=== PATIENT | male | born 1945 | race Hispanic/Latino ===

== ENCOUNTER 2016-10-08 11:00 | Observation (INO) | payer MEDICARE ==
[2016-10-08] MEDS ORDERED: ANCEF IR ONE (11:28)
[2016-10-08] MEDS ORDERED: NACL 0.9% 1 ML, VANCOMYCIN VIAL 1,000 MG IR ONE (11:28)
[2016-10-08] MEDS ORDERED: NACL 0.9% IR ONE (11:28)
[2016-10-08 11:54] LABS: Eosinophils % (Auto) 0.8 % (0.0-4.3); Hematocrit 39.3 % (35.5-45.6); Hemoglobin 13.4 gm/dl (11.8-15.2); Mean Corpuscular HGB Conc 34 % (32-34); Mean Corpuscular Hemoglobin 32 pg (28-32); Mean Corpuscular Volume 93 fl (84-94); Platelet Count 303 K/mm3 (140-440); Red Blood Count 4.22 M/mm3 (3.65-5.03); Red Cell Distribution Width 13.5 % (13.2-15.2); White Blood Count 11.2 K/mm3 (4.5-11.0)
[2016-10-08] MEDS ORDERED: NACL 0.45% 1000 ML 1,000 ML IV SCH (12:00)
[2016-10-08 12:06] LABS: INR 0.99 (0.87-1.13); Partial Thromboplastin Time 27.1 Sec. (24.2-36.6)
[2016-10-08] MEDS ORDERED: VANCOMYCIN IV ONE (12:15)
[2016-10-08] MEDS ORDERED: NACL 0.9% IV ONE (12:15)
[2016-10-08] MEDS ORDERED: NACL 0.9% 500 ML IR ONE (12:24)
[2016-10-08] MEDS ORDERED: XYLOCAINE 2% INFILTRATI ONE (12:25)
[2016-10-08] MEDS ORDERED: ANCEF/STERILE WATER 2 GM/20 ML 2 GM/20 ML SYRINGE IV ONE (12:25)
[2016-10-08] MEDS ORDERED: MILK OF MAGNESIA PO PRN (12:25)
[2016-10-08] MEDS ORDERED: ZOFRAN IV PRN (12:25)
[2016-10-08] MEDS ORDERED: MARCAINE 0.25% INFILTRATI ONE (12:25)
[2016-10-08] MEDS ORDERED: DULCOLAX PR PRN (12:25)
[2016-10-08] MEDS ORDERED: NACL 0.9% 500 ML 500 ML ONE ×2 (12:33→13:28)
[2016-10-08 12:55] LABS: BUN/Creatinine Ratio 23.33; Calcium 9.4 mg/dL (8.4-10.2); Chloride 97.8 mmol/L (98-107); Potassium 3.8 mmol/L (3.6-5.0)
[2016-10-08] MEDS: SUBLIMAZE ONE ×3 (13:05→13:35)
[2016-10-08] MEDS: VERSED ONE ×2 (13:05→13:23)
[2016-10-08] MEDS ORDERED: VANCOMYCIN VIAL 1,000 MG in NACL 0.9% 1,000 ML IRRIGATION ONE (13:25)
[2016-10-08] MEDS ORDERED: TYLENOL PO PRN (15:10)
[2016-10-08] MEDS ORDERED: ANCEF/NS 1 GM/50 ML 1 GM/50 ML BAG IV SCH (16:00)
[2016-10-08 16:13] LABS: Basophils % (Auto) 0.6 % (0.0-1.8); Eosinophils % (Auto) 0.6 % (0.0-4.3); Hematocrit 37.4 % (35.5-45.6); Hemoglobin 12.3 gm/dl (11.8-15.2); Mean Corpuscular HGB Conc 33 % (32-34); Mean Corpuscular Hemoglobin 31 pg (28-32); Mean Corpuscular Volume 95 fl (84-94); Platelet Count 286 K/mm3 (140-440); Red Blood Count 3.95 M/mm3 (3.65-5.03); Red Cell Distribution Width 13.4 % (13.2-15.2); White Blood Count 11.1 K/mm3 (4.5-11.0)
[2016-10-08 16:24] LABS: INR 1.05 (0.87-1.13)
[2016-10-08 16:37] LABS: BUN/Creatinine Ratio 20.83; Calcium 8.9 mg/dL (8.4-10.2); Chloride 99.5 mmol/L (98-107); Potassium 3.8 mmol/L (3.6-5.0)
--- NOTE | 2016-10-08 16:49 | XRay Report ---
PORTABLE CHEST INDICATION: Post pacemaker. COMPARISON: None similar. FINDINGS: Portable, frontal chest radiograph demonstrates normal cardiomediastinal silhouette. Left sided pacemaker with dual chamber leads. Right hemidiaphragm mildly elevated. Clear lungs. EKG leads. Unremarkable bones. CONCLUSION: Uncomplicated left pacemaker placement, as described. Thank you for the opportunity to participate in this patient's care.
[2016-10-08] MEDS: TYLENOL PO PRN (19:30)
[2016-10-08] MEDS: ANCEF/NS 1 GM/50 ML 1 GM/50 ML BAG IV SCH (21:26)
[2016-10-09] MEDS: TYLENOL PO PRN (03:42)
[2016-10-09] MEDS: ANCEF/NS 1 GM/50 ML 1 GM/50 ML BAG IV SCH (03:43)
--- NOTE | 2016-10-09 08:25 | Admit Criteria Form ---
Admission Criteria Documentation: TELEMETRY CARE Telemetry Admission Guidelines (Place 'X' for any and all applicable criteria): Admission to telemetry [A] may be indicated for ANY ONE of the following(1)(2)(3 )(4)(5): [X ]I. Cardiac disease, including ANY ONE of the following (9)(10)(11)(12)( 13): [ ]a) Postacute NC [ ]b) Low-risk patients with ST-segment elevation NC who have undergone successful percutaneous coronary intervention [ ]c) Unstable angina [ ]d) Suspected NC (until it is ruled out) [ ]e) Post cardiac surgery (first 48 to 72 hours unless complications occur) [ X]f) Acute arrhythmias (including significant tachycardia or bradycardia) [B] [ ]g) Firing of an implantable cardioverter defibrillator [C] [ ]h) Suspected pacemaker or implantable cardioverter defibrillator malfunction (10) [ ]i) New administration or adjustment of an antiarrhythmic drug [D ] [ ]j) Child admitted for acute congestive heart failure [ ]j) Long QT syndrome [ ]k) Advanced heart block (eg, second-degree Mobitz type II, third- degree heart block) [ ]l) Acute myocarditis or pericarditis [ ]m) Short-term (ambulatory or inpatient) monitoring after a cardiac procedure as indicated by ANY ONE of the following [E]: [ ]i) Electrophysiologic studies [ ]ii) Percutaneous coronary intervention with stent placement [ ]iii) Pacemaker placement with cardiac conduction defect [ ]iv) Implantable cardiac defibrillator placement [ ]II. Drug overdose or poisoning with substance that causes arrhythmias or QT prolongation (eg, phenothiazines, sympathomimetic agents, cyclic antidepressants, digitalis, antiarrhythmic drugs)(15) [ ]III. Short-term (ambulatory or inpatient) monitoring after therapeutic or diagnostic procedure requiring conscious sedation or anesthesia (eg, endoscopy, elective cardioversion) [ ]IV. Acute cerebrovascular even[F](18) [ ]V. Massive blood transfusion (eg, at least 10 units of packed red blood cells in 24 hours) [ ]. Variceal bleeding after endoscopy, sclerotherapy, or IV vasopressin [ ]VII. Uncorrected electrolyte abnormalities associated with an increased risk of dangerous arrhythmia [G]; examples include [ ]a) Hyperkalemia with attributable ECG changes [ ]b) Potassium greater than 6.5 mmol/L (mEq/L) in a patient without history of chronic renal disease [ ]c) Prolonged QT attributed to hypokalemia, hypomagnesemia, or hypocalcemia [ ]VIII.Unexplained syncope or other neurologic event suspected of being due to arrhythmia due to a finding that increases risk; examples include(19)(20)(21): [ ]a) High-risk ECG findings (eg, bifascicular block, bradycardia, abnormal QT interval, ventricular pre- excitation) [ ]b) History of previous syncope due to arrhythmia [ ]c) Abnormal ventricular function (eg, reduced ejection fraction ) [ ]d) Exertional or supine syncope [ ]e) Concerning syncope characteristics (eg, sudden loss of consciousness without prodrome) [ ]f) Family history of sudden [ ]g) Use of arrhythmogenic medication [ ]h) Suspected cardiac ischemia [ ]i) Known channelopathy (eg, long QT syndrome, Brugada syndrome, or catecholaminergic paroxysmal ventricular tachycardia) [ ]j) Known structural heart disease (eg, hypertrophic cardiomyopathy , severe valvular disease) [ ]k) Palpitations preceding syncope The original [employer] content created by [employer] has been revised. The portions of the content which have been revised are identified through the use of italic text or in bold, and [employer] has neither reviewed nor approved the modified material. All other unmodified content is copyright [employer]. Please see references footnoted in the original [employer] edition 2016
--- NOTE | 2016-10-09 09:13 | Short Stay Summary ---
Short Stay Documentation Date of service: 10/09/16 - History H&P: obtained from office - Allergies and Medications Current Medications: Allergies No Known Allergies Allergy (Unverified 09/25/16 11:13) Home Medications Medication Instructions Recorded Confirmed Last Taken Type AtorvaSTATin 40 mg PO QHS 09/25/16 10/08/16 10/07/16 History amLODIPine 10 mg PO QDAY 09/25/16 10/08/16 10/07/16 History Lisinopril 20 mg PO DAILY #30 09/26/16 10/08/16 10/07/16 Rx Pantoprazole [Protonix TAB] 40 mg PO QDAY #30 tablet 09/26/16 10/08/16 10/07/16 Rx Active Medications Acetaminophen (Tylenol) 650 mg PO Q4H PRN PRN Reason: Pain MILD(1-3)/Fever >100.5/SALMON Last Admin: 10/09/16 03:42 Dose: 650 mg Acetaminophen (Tylenol) 650 mg PO Q4H PRN PRN Reason: Mild pain (1-3) Amlodipine Besylate (Norvasc) 10 mg PO QDAY [facility] Atorvastatin Calcium (Lipitor) 40 mg PO QHS [facility] Last Admin: 10/08/16 21:27 Dose: 40 mg Bisacodyl (Dulcolax) 10 mg [place] QDAY PRN PRN Reason: Constipation unrelieved by MOM Sodium Chloride (Nacl 0.45% 1000 Ml) 1,000 mls @ 50 mls/hr IV DIRECT ANABELLE Lisinopril (Zestril) 20 mg PO QDAY [facility] Magnesium Hydroxide (Milk Of Magnesia) 30 ml PO Q4H PRN PRN Reason: Constipation Ondansetron HCl (Zofran) 4 mg IV Q8H PRN PRN Reason: N/V unrelieved by Reglan Pantoprazole Sodium (Protonix) 40 mg PO QDAY [facility] - Brief post op/procedure progress note Date of procedure: 10/08/16 Pre-op diagnosis: symptomatic bradycardia Post-op diagnosis: same Procedure: PPM implantation - please see dictated implantation report. Anesthesia: local Estimated blood loss: none Pathology: none Condition: stable - Hospital course Hospital course: Pt is a 71 YO male with a past medical history significant for HTN, HLP, symptomatic bradycardia. He presented on 10/08/2016 for scheduled elective PPM implantation and subsequently undewent PPM implantation per Dr. Vuong. He remained clinically and hemodynamically stable throughout the procedure and recovery and is cleared for discharge home today. 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 Vuong on 10/19/2016 @ 1:00PM. ) MAITE STOVER MD [Staff Physician] - 7 Days (Follow up in our [place] office with Dr. Stover on 10/27/2016 @ 3:45PM. )
[2016-10-09] MEDS ORDERED: ZESTRIL PO SCH (10:00)
[2016-10-09] MEDS ORDERED: PROTONIX PO SCH (10:00)
[2016-10-09] MEDS ORDERED: NORVASC PO SCH (10:00)
[2016-10-09 10:33] VITALS: BP 139/76
== END 2016-10-09 10:00 | disposition home or self-care (01) ==
LOC: OPU 11:00 → 4A 12:25
PROVIDERS: ADMIT Internal Medicine Cardiovascular Disease; ATTEND Internal Medicine Cardiovascular Disease
DX: I49.5 Sick sinus syndrome (principal); I44.1 Atrioventricular block, second degree; R00.1 Bradycardia, unspecified; R53.1 Weakness; R11.0 Nausea; I10 Essential (primary) hypertension; E78.5 Hyperlipidemia, unspecified; Z95.0 Presence of cardiac pacemaker
CPT/HCPCS: 33208; 36415; 71010; 80048; 85025; 85610; 85730; 93005; 93010; 96365; 96375; A9270; C1779; C1785; C1892; G0378; J0690; J2250; J3010; J3370; J7040

== ENCOUNTER 2016-10-09 17:29 | Emergency (ER) | payer MEDICARE ==
[2016-10-09 18:04] LABS: Basophils % (Auto) 0.9 % (0.0-1.8); Eosinophils % (Auto) 0.6 % (0.0-4.3); Hematocrit 35.5 % (35.5-45.6); Hemoglobin 12.1 gm/dl (11.8-15.2); Mean Corpuscular HGB Conc 34 % (32-34); Mean Corpuscular Hemoglobin 32 pg (28-32); Mean Corpuscular Volume 93 fl (84-94); Platelet Count 255 K/mm3 (140-440); Red Blood Count 3.83 M/mm3 (3.65-5.03); Red Cell Distribution Width 13.5 % (13.2-15.2); White Blood Count 13.9 K/mm3 (4.5-11.0)
[2016-10-09 18:25] LABS: Anion Gap 21 mmol/L; Blood Urea Nitrogen 26 mg/dL (9-20); Calcium 8.8 mg/dL (8.4-10.2); Carbon Dioxide 21 mmol/L (22-30); Chloride 97.2 mmol/L (98-107); Glucose 114 mg/dL (75-100); Potassium 3.3 mmol/L (3.6-5.0); Sodium 136 mmol/L (137-145)
--- NOTE | 2016-10-09 18:55 | Emergency Department Report ---
ED Palpitations HPI - General Chief Complaint: Arrhythmia/Palpitations Stated Complaint: WEAKNESS Time Seen by Provider: 10/09/16 17:45 Source: patient, family, RN notes reviewed Mode of arrival: Wheelchair Limitations: No Limitations - History of Present Illness Initial Comments: 71-year-old male presents to the emergency department complaining of palpitations. Patient had an implanted permanent pacemaker placed yesterday. He was discharged from the hospital this morning. Pacemaker was placed for symptomatic bradycardia. Patient was doing well until he woke up from a nap this afternoon, approximately 30 minutes prior to arrival. Patient states he was having difficulty breathing and felt dizzy. He reports he felt his pulse beating very fast. He denies chest pain. His symptoms have been intermittent since onset. There are no other complaints. MD Complaint: palpitations -: Sudden, This afternoon Context: occured during rest Arrythmia History: pacemaker Associated Symptoms: shortness of breath, near-syncope, nausea/vomiting (nausea only) - Related Data Previous Rx's Medication Instructions Recorded Last Taken Type AtorvaSTATin [Lipitor] 40 mg PO QHS tablet 10/09/16 Unknown Rx Lisinopril [Zestril TAB] 20 mg PO QDAY tablet 10/09/16 Unknown Rx Metoprolol Xl [Metoprolol 25 mg PO QDAY #30 tablet 10/09/16 Unknown Rx SUCCINATE ER TAB] amLODIPine [Norvasc] 10 mg PO QDAY tablet 10/09/16 Unknown Rx Allergies Allergy/AdvReac Type Severity Reaction Status Date / Time No Known Allergies Allergy Unverified 10/09/16 17:51 ED Review of Systems ROS: Stated complaint: WEAKNESS Other details as noted in HPI Comment: All other systems reviewed and negative Respiratory: shortness of breath Cardiovascular: palpitations, syncope (lightheadedness, no loss of consciousness ) Gastrointestinal: nausea ED Past Medical Hx - Past Medical History Previous Medical History?: Yes Hx Hypertension: Yes Hx Heart Attack/AMI: No Hx Congestive Heart Failure: No Hx Kidney Stones: Yes Hx HIV: No - Surgical History Past Surgical History?: Yes Hx Pacemaker: Yes - Family History Family history: no significant - Social History Smoking Status: Former Smoker Substance Use Type: None - Medications Home Medications: Home Medications Medication Instructions Recorded Confirmed Last Taken Type AtorvaSTATin [Lipitor] 40 mg PO QHS tablet 10/09/16 10/09/16 Unknown Rx Lisinopril [Zestril TAB] 20 mg PO QDAY tablet 10/09/16 10/09/16 Unknown Rx Metoprolol Xl [Metoprolol 25 mg PO QDAY #30 tablet 10/09/16 Unknown Rx SUCCINATE ER TAB] amLODIPine [Norvasc] 10 mg PO QDAY tablet 10/09/16 10/09/16 Unknown Rx ED Physical Exam - General Limitations: No Limitations General appearance: alert, in no apparent distress - Head Head exam: Present: atraumatic, normocephalic - Eye Eye exam: Present: normal appearance, PERRL, EOMI - ENT ENT exam: Present: normal exam, normal orophraynx, mucous membranes moist - Neck Neck exam: Present: normal inspection, full ROM. Absent: tenderness - Respiratory Respiratory exam: Present: normal lung sounds bilaterally, chest wall tenderness (mild tenderness to palpation left upper anterior chest wall at the pacemaker site. Dressing is intact without evidence of bleeding.). Absent: respiratory distress - Cardiovascular Cardiovascular Exam: Present: regular rate, normal rhythm, normal heart sounds - GI/Abdominal GI/Abdominal exam: Present: soft, normal bowel sounds. Absent: distended, tenderness - Extremities Exam Extremities exam: Present: normal inspection, full ROM. Absent: tenderness - Back Exam Back exam: Present: normal inspection, full ROM. Absent: tenderness - Neurological Exam Neurological exam: Present: alert, oriented X3. Absent: motor sensory deficit - Skin Skin exam: Present: warm, dry, intact ED Course Vital Signs 10/09/16 10/09/16 10/09/16 17:31 17:45 17:46 Temperature 98.4 F Pulse Rate 94 H 94 H 93 H Respiratory 17 22 18 Rate Blood Pressure 126/73 126/73 O2 Sat by Pulse 99 99 Oximetry 10/09/16 10/09/16 10/09/16 18:00 18:15 18:30 Temperature Pulse Rate 102 H 88 89 Respiratory 22 14 16 Rate Blood Pressure 122/74 122/74 117/76 O2 Sat by Pulse 98 97 97 Oximetry 10/09/16 10/09/16 18:45 19:00 Temperature Pulse Rate 117 H 98 H Respiratory 13 21 Rate Blood Pressure 117/76 123/75 O2 Sat by Pulse 98 96 Oximetry ED Medical Decision Making - Lab Data Result diagrams: 10/09/16 17:50 10/09/16 17:50 - EKG Data -: EKG Interpreted by Me EKG shows normal: ST-T waves Rate: tachycardia - EKG Data When compared to previous EKG there are: previous EKG unavailable Interpretation: other (a regularly paced rhythm. Dual-chamber pacemaker with left bundle branch block morphology. No ischemic changes noted.) - Radiology Data Radiology results: image reviewed interpreted by me: Chest x-ray shows no acute abnormality. - Medical Decision Making Observing the patient on the alarm security or surveillance monitor reveals the patient's heart rate varying from the low 90s up to the high 120s. When his heart rate is in the 90s , he is asymptomatic. He becomes symptomatic with dizziness and nausea with his heart rate gets above 115. Lab and imaging results reviewed. The [employer] has been contacted and is en route to the emergency department to interrogate the newly placed pacemaker. I have also spoken with Dr. Yanes , cardiology. Disposition is pending results of pacemaker interrogation. 1956--pacemaker has been interrogated by the [employer] rep. Apparently, both the atrial and ventricular leads were undersensing causing some over pacing. His underlying rhythm is 2-1 block. He has been having some episodes of atrial tachycardia. These findings were discussed with Dr. Yanes. The plan is to give 5 mg of metoprolol IV and 25 mg of oral metoprolol. Patient will be discharged home on 25 mg of Toprol-XL to follow up with cardiology at his regularly scheduled appointment. This plan was discussed with the patient and family who agree. - Differential Diagnosis pacemaker malfunction, ACS Critical care attestation.: If time is entered above; I have spent that time in minutes in the direct care of this critically ill patient, excluding procedure time. ED Disposition Clinical Impression: Palpitations Pacemaker complications Qualifiers: Encounter type: initial encounter Qualified Code(s): T82.9XXA - Unspecified complication of cardiac and vascular prosthetic device, implant and graft, initial encounter Disposition: DISCHARGED TO HOME OR SELFCARE Is pt being admited?: No Condition: Stable Instructions: Palpitations (ED) Prescriptions: Metoprolol Xl [Metoprolol SUCCINATE ER TAB] 25 mg PO QDAY #30 tablet Referrals: MAITE STOVER MD [Staff Physician] - 7-10 days Time of Disposition: 20:03
[2016-10-09 19:19] VITALS: BP 123/75
[2016-10-09] MEDS ORDERED: LOPRESSOR IV ONE (19:56)
[2016-10-09] MEDS ORDERED: TOPROL XL PO ONE (21:00)
--- NOTE | 2016-10-10 09:27 | XRay Report ---
AP CHEST: HISTORY: This arrhythmia, palpitations AP view of the chest demonstrates a normal mediastinal and cardiac contour with clear lungs and normal bony and soft tissue structures. 2-lead pacemaker is again noted. No change since yesterday's exam. IMPRESSION: Unremarkable AP chest.
== END 2016-10-09 21:50 | disposition home or self-care (01) ==
LOC: ED 17:29
DX: T82.9XXA Unspecified complication of cardiac and vascular prosthetic device, implant and graft, initial encounter (principal); R00.2 Palpitations; I10 Essential (primary) hypertension; Z87.891 Personal history of nicotine dependence; Z95.0 Presence of cardiac pacemaker
CPT/HCPCS: 36415; 71010; 80048; 83735; 84484; 85025; 93005; 93010; 96374

== ENCOUNTER 2017-05-09 23:03 | Emergency (ER) | payer MEDICARE ==
[2017-05-09 23:25] VITALS: BP 110/76
[2017-05-10 00:11] LABS: Basophils % (Auto) 0.7 % (0.0-1.8); Eosinophils % (Auto) 0.3 % (0.0-4.3); Hematocrit 40.9 % (35.5-45.6); Hemoglobin 13.8 gm/dl (11.8-15.2); Mean Corpuscular HGB Conc 34 % (32-34); Mean Corpuscular Hemoglobin 32 pg (28-32); Mean Corpuscular Volume 95 fl (84-94); Platelet Count 290 K/mm3 (140-440); Red Blood Count 4.33 M/mm3 (3.65-5.03); Red Cell Distribution Width 13.8 % (13.2-15.2)
[2017-05-10 00:32] LABS: Anion Gap 22 mmol/L; BUN/Creatinine Ratio 17; Blood Urea Nitrogen 22 mg/dL (9-20); Calcium 9.4 mg/dL (8.4-10.2); Carbon Dioxide 25 mmol/L (22-30); Glucose 123 mg/dL (75-100); Potassium 3.4 mmol/L (3.6-5.0); Sodium 139 mmol/L (137-145)
== END 2017-05-10 | disposition left against medical advice (07) ==
LOC: ED 23:03
DX: R07.9 Chest pain, unspecified (principal); Z53.21 Procedure and treatment not carried out due to patient leaving prior to being seen by health care provider
CPT/HCPCS: 36415; 80048; 84484; 85025; 93005; 93010

== ENCOUNTER 2017-09-24 19:31 | Inpatient (IN) | payer MEDICARE ==
[2017-09-24] MEDS ORDERED: ASPIRIN PO ONE (19:50)
[2017-09-24 20:42] LABS: Basophils # (Auto) 0.1 K/mm3 (0.0-0.1); Basophils % (Auto) 0.7 % (0.0-1.8); Eosinophils % (Auto) 0.3 % (0.0-4.3); Hematocrit 39.7 % (35.5-45.6); Hemoglobin 13.2 gm/dl (11.8-15.2); Lymphocytes % (Auto) 16.3 % (13.4-35.0); Mean Corpuscular HGB Conc 33 % (32-34); Mean Corpuscular Hemoglobin 31 pg (28-32); Mean Corpuscular Volume 94 fl (84-94); Monocytes # (Auto) 0.5 K/mm3 (0.0-0.8); Monocytes % (Auto) 4.2 % (0.0-7.3); Platelet Count 256 K/mm3 (140-440); Red Blood Count 4.24 M/mm3 (3.65-5.03); Red Cell Distribution Width 13.1 % (13.2-15.2)
[2017-09-24 20:47] LABS: Bilirubin,Urine NEG (Negative); Blood,Urine NEG (Negative); Color,Urine Yellow (Yellow); Protein,Urine <15 mg/dL mg/dL (Negative); Urobilinogen,Urine < 2.0 mg/dL (<2.0); WBC,Urine < 1.0 /HPF (0.0-6.0)
[2017-09-24 20:52] LABS: BUN/Creatinine Ratio 18; Blood Urea Nitrogen 20 mg/dL (9-20); Calcium 9.3 mg/dL (8.4-10.2); Hemolysis Index 28
--- NOTE | 2017-09-24 21:36 | Emergency Department Report ---
ED Syncope HPI - General Chief Complaint: Syncope Stated Complaint: SYNCOPE, N/V, WEAKNESS Time Seen by Provider: 09/24/17 21:22 Source: patient Exam Limitations: no limitations - History of Present Illness Initial Comments: 72-year-old male with a past medical history of hypertension, kidney stones, and pacemaker placement secondary to bradycardia presents to Hospital complaining of near syncopal episode today. Patient was out in the yard is believed [place] began to feel lightheaded, nauseated, weak, and diaphoretic. Patient sat down and tried to call her the symptoms continued. He then was having intermittent sweats, chills, and felt like his heart rate was increasing and therefore came to the hospital. He is asymptomatic at this time. He denies vomiting, chest pain, headache, or abdominal pain. He states he had a cardiac visit including pacemaker evaluation and physical the last 2 months. His blow torch operator is Dr. Upton and PMD: Dr. Mik Rosales - Related Data Allergies/Adverse Reactions: Allergies No Known Allergies Allergy (Unverified 10/09/16 17:51) Home Medications: Ambulatory Orders AtorvaSTATin [Lipitor] 40 mg PO QHS tablet 10/09/16 Lisinopril [Zestril TAB] 20 mg PO QDAY tablet 10/09/16 Metoprolol Xl [Metoprolol SUCCINATE ER TAB] 25 mg PO QDAY #30 tablet 10/09/16 amLODIPine [Norvasc] 10 mg PO QDAY tablet 10/09/16 ED Review of Systems ROS: Stated complaint: SYNCOPE, N/V, WEAKNESS Other details as noted in HPI Comment: All other systems reviewed and negative ED Past Medical Hx - Past Medical History Previous Medical History?: Yes Hx Hypertension: Yes Hx Heart Attack/AMI: (PACE MAKER) Hx Congestive Heart Failure: No Hx Kidney Stones: Yes Hx HIV: No - Surgical History Past Surgical History?: Yes Hx Pacemaker: Yes - Social History Smoking Status: Former Smoker Substance Use Type: None - Medications Home Medications: Home Medications Medication Instructions Recorded Confirmed Last Taken Type AtorvaSTATin [Lipitor] 40 mg PO QHS tablet 10/09/16 10/09/16 Unknown Rx Lisinopril [Zestril TAB] 20 mg PO QDAY tablet 10/09/16 10/09/16 Unknown Rx Metoprolol Xl [Metoprolol 25 mg PO QDAY #30 tablet 10/09/16 Unknown Rx SUCCINATE ER TAB] amLODIPine [Norvasc] 10 mg PO QDAY tablet 10/09/16 10/09/16 Unknown Rx ED Physical Exam - General Limitations: No Limitations - Other Other exam information: General: No limitations, patient is alert in no acute distress Head exam: Atraumatic, normocephalic Eyes exam: Normal appearance, pupils equal reactive to light, extraocular movements intact ENT: Moist mucous membrane, normal oropharynx Neck exam: Normal inspection, full range of motion, no meningismus nontender Respiratory exam: Clear to auscultation bilateral, no wheezes, rales, crackles Cardiovascular: Normal rate and rhythm, normal heart sounds Abdomen: Soft, nondistended, and nontender, with normal bowel sounds, no rebound, or guarding Extremity: Full range of motion normal inspection no deformity Back: Normal Inspection, full range of motion, no tenderness Neurologic: Alert, oriented x3, cranial nerves intact, no motor or sensory deficit Psychiatric: normal affect, normal mood Skin: Warm, dry, intact ED Course Vital Signs 09/24/17 19:44 Temperature 98.6 F Pulse Rate 89 Respiratory 18 Rate Blood Pressure 137/84 [Left] O2 Sat by Pulse 97 Oximetry - Consultations Consultation #1: 09/24/17 22:19 case d/w DR Upton blow torch operator, rec admit, will consult ED Medical Decision Making - Lab Data Result diagrams: 09/24/17 20:20 09/24/17 20:20 Lab Results 09/24/17 09/24/17 09/24/17 Range/Units 20:20 20:20 20:20 WBC 12.5 H (4.5-11.0) K/mm3 RBC 4.24 (3.65-5.03) M/mm3 Hgb 13.2 (11.8-15.2) gm/dl Hct 39.7 (35.5-45.6) % MCV 94 (84-94) fl MCH 31 (28-32) pg MCHC 33 (32-34) % RDW 13.1 L (13.2-15.2) % Plt Count 256 (140-440) K/mm3 Lymph % (Auto) 16.3 (13.4-35.0) % [place] % (Auto) 4.2 (0.0-7.3) % Eos % (Auto) 0.3 (0.0-4.3) % Baso % (Auto) 0.7 (0.0-1.8) % Lymph # 2.0 (1.2-5.4) K/mm3 [place] # 0.5 (0.0-0.8) K/mm3 Eos # 0.0 (0.0-0.4) K/mm3 Baso # 0.1 (0.0-0.1) K/mm3 Seg Neutrophils % 78.5 H (40.0-70.0) % Seg Neutrophils # 9.8 H (1.8-7.7) K/mm3 Sodium 136 L (137-145) mmol/L Potassium 4.0 (3.6-5.0) mmol/L Chloride 97.3 L (98-107) mmol/L Carbon Dioxide 25 (22-30) mmol/L Anion Gap 18 mmol/L BUN 20 (9-20) mg/dL Creatinine 1.1 (0.8-1.5) mg/dL Estimated GFR > 60 ml/min BUN/Creatinine Ratio 18 % Glucose 124 H (75-100) mg/dL Calcium 9.3 (8.4-10.2) mg/dL Troponin T < 0.010 (0.00-0.029) ng/mL Urine Color Yellow (Yellow) Urine Turbidity Clear (Clear) Urine pH 5.0 (5.0-7.0) Ur Specific [place] 1.011 (1.003-1.030) Urine Protein <15 mg/dl (Negative) mg/dL Urine Glucose (UA) Neg (Negative) mg/dL Urine Ketones Neg (Negative) mg/dL Urine Blood Neg (Negative) Urine Nitrite Neg (Negative) Urine Bilirubin Neg (Negative) Urine Urobilinogen < 2.0 (<2.0) mg/dL Ur Leukocyte Esterase Neg (Negative) Urine WBC (Auto) < 1.0 (0.0-6.0) /HPF Urine RBC (Auto) 1.0 (0.0-6.0) /HPF - EKG Data -: EKG Interpreted by Me (RBBB) EKG shows normal: sinus rhythm, axis (qrs 81), QRS complexes (137), ST-T waves ( no stemi/t inv) - EKG Data When compared to previous EKG there are: no significant change - Radiology Data Radiology results: image reviewed (cxr pa and lat: naf) - Medical Decision Making Plan to admit this possible further cardiac monitoring for near syncopal episode. Academic Services Professional informed. Initial ED workup unremarkable - Differential Diagnosis arrhythmia, dehydration, NV, vasovagal Critical Care Time: No Critical care attestation.: If time is entered above; I have spent that time in minutes in the direct care of this critically ill patient, excluding procedure time. ED Disposition Clinical Impression: Near syncope, Cardiac pacemaker in situ, HTN (hypertension) Disposition: OP ADMIT IP TO THIS HOSP Is pt being admited?: Yes Condition: Stable Time of Disposition: 22:20 (Dr Childress/hospitalist)
--- NOTE | 2017-09-24 22:30 | XRay Report ---
FINAL REPORT PROCEDURE: XR CHEST ROUTINE 2V TECHNIQUE: PA and lateral chest radiographs were obtained. CPT 93160 HISTORY: Shortness of breath COMPARISON: No prior studies are available for comparison. FINDINGS: Heart: Normal. Mediastinum/Vessels: Normal. Lungs/Pleural space: Lungs are hyperinflated. There are no confluent infiltrates or mass lesions. Pleural spaces are clear.. Bony thorax: No acute osseous abnormality. Other: A bipolar cardiac device is noted on the left side with its leads in place. IMPRESSION: COPD No acute pulmonary process..
[2017-09-24] MEDS ORDERED: NACL 0.9% 1000 ML 1,000 ML IV SCH (23:00)
[2017-09-24] MEDS ORDERED: TYLENOL PO PRN (23:01)
[2017-09-24] MEDS ORDERED: ZOFRAN IV PRN (23:10)
[2017-09-24] MEDS ORDERED: HEPARIN ONE (23:25)
[2017-09-24] MEDS ORDERED: ASPIRIN ONE (23:25)
[2017-09-24] MEDS: HEPARIN SUB-Q SCH (23:33)
--- NOTE | 2017-09-25 00:57 | History and Physical Report ---
CHIEF COMPLAINT: Near syncopal feeling. HISTORY OF PRESENT ILLNESS: The patient is a 72-year-old male who said he felt like he was going to pass out. He said he was out in the yard doing some work and then felt lightheaded, nauseated, weak, and then diaphoretic that felt like he was going to pass out and he sat down and tried o get himself to get up. He said he managed to get into his car and then felt like getting some air and felt better. The patient during this episode felt that his heart rate was increasing or getting faster. He denied any history of chest pain. Denied any history of fever or chills and only had nausea with no vomiting. There was no history of cough and no history of abdominal pain and the patient came to the Emergency Room. PAST MEDICAL HISTORY: Pertinent for hypertension. Also, the patient has a past medical history of coronary artery disease, kidney stones, and pacemaker requirements. PAST SURGICAL HISTORY: Pertinent for pacemaker placement. FAMILY HISTORY: Noncontributory. SOCIAL HISTORY: The patient is a former smoker and does not smoke cigarettes anymore, does not drink alcohol, and does not use illicit drugs. MEDICATIONS: The patient is on Lipitor 40 mg at bedtime, lisinopril 20 mg by mouth daily, metoprolol 25 mg by mouth daily, and amlodipine 10 mg by mouth daily. ALLERGIES: There are no known drug allergies. REVIEW OF SYSTEMS: CONSTITUTIONAL: There is no fever, no chills. Diaphoresis present. HEENT: There is no headache or sore throat. CARDIOVASCULAR SYSTEM: There is no chest pain or orthopnea. RESPIRATORY SYSTEM: Shortness of breath is present. No cough. GASTROINTESTINAL SYSTEM: There is nausea with no vomiting, no abdominal pain, diarrhea, or constipation. NEUROLOGICAL: There is no numbness, no dizziness, no altered mental status. MUSCULOSKELETAL SYSTEM: There is no joint pain or swelling. DERMATOLOGICAL SYSTEM: There is no skin rash or itching. GENITOURINARY SYSTEM: There is no dysuria, hematuria, or flank pain. Rest of system review is normal. PHYSICAL EXAMINATION: GENERAL: At the time of exam, the patient was found to be alert, oriented x 3 and not in acute distress. VITAL SIGNS: At the time of initial presentation shows temperature of 98.6 degrees Fahrenheit, pulse of 89, respirations 18, blood pressure 137/84, O2 sat of 97% on room air. HEENT: Showed pupils to be equal, round, reactive to light and accommodating. Extraocular muscles are intact. NECK: Supple with no JVD or carotid bruit. CARDIOVASCULAR: Showed normal first and second heart sounds with no gallops or murmurs. RESPIRATORY: Showed good air entry on both sides of the lungs with no abnormal breath sounds.. GASTROINTESTINAL: Showed abdomen to be full, soft, nontender with no organomegaly or rigidity. NEUROLOGICAL: Showed no focal deficits. MUSCULOSKELETAL: Showed no joint swelling or tenderness. DERMATOLOGICAL: Showed no skin rash. GENITOURINARY: Showing no acute costovertebral angle tenderness. PERTINENT LABORATORY AND IMAGING STUDIES: The patient has the following lab tests done: [place] [address] with normal hemoglobin and normal hematocrit with CBC differential showing elevated neutrophil count of 78.5% with no significant bands. Chemistry shows slight decrease in sodium of 136 with slight decrease in chloride of 97.3 with the rest of chemistry being unremarkable. Cardiac enzymes show normal troponin level. The patient's urinalysis was remarkable. IMAGING STUDIES: The patient had chest x-ray done that came back showing no acute cardiopulmonary lesion. DIAGNOSES: Near syncope. PLAN: The patient will be admitted to medical floor and telemetry and will have cardiac enzymes involving troponin, total CK, and CK-MB checked q.6 hours x 2 more levels. The patient will have 2D echo done in the morning and will have bilateral carotid Doppler also done in the morning. The patient will continue cardiology consult with Dr. Upton requested by the Emergency Room physician, Dr. Durbin. The patient will be on IV normal saline at 75 mL an hour and will be on IV Zofran 4 mg every 8 hours as needed for nausea and vomiting. The patient will also be on Tylenol 650 mg by mouth every 4 hours as needed for fever and headache and will be on aspirin 325 mg by mouth daily. The patient's home medications will be applied as shown in the medication reconciliation section and DVT prophylaxis will be through heparin 5000 units subQ q.12 hours. JOB# [id number] OCN/NTS
[2017-09-25 02:03] LABS: Creatine Kinase MB 1.8 ng/mL (0.0-4.0)
[2017-09-25 04:26] VITALS: BP 123/72
[2017-09-25 07:31] LABS: Creatine Kinase MB 1.5 ng/mL (0.0-4.0)
[2017-09-25] MEDS: HEPARIN SUB-Q SCH (09:30)
[2017-09-25] MEDS ORDERED: ASPIRIN PO SCH (10:00)
[2017-09-25] MEDS ORDERED: ZESTRIL PO SCH (10:00)
[2017-09-25] MEDS ORDERED: NORVASC PO SCH (10:00)
[2017-09-25] MEDS ORDERED: TOPROL XL PO SCH (10:00)
--- NOTE | 2017-09-25 12:17 | Event Note ---
Date: 09/25/17 full consult dictated. Prelim tte - nl lv fxn, no valvulopathy or pericardial effusion tele, labs unremarkable vss feeling back to normal may go outpt pcm interrogation encourage more po fluids
--- NOTE | 2017-09-25 14:15 | Discharge Summary ---
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 Patient was out in the yard began to feel lightheaded, nauseated, weak, and diaphoretic. Patient sat down but the symptoms continued. He then was having intermittent sweats, chills, and felt like his heart rate was increasing and therefore came to the hospital. He is asymptomatic at presentation. He denies vomiting, chest pain, headache, or abdominal pain. He states he had cardiology F/U, Including pacemaker evaluation and physical the last 2 months. 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 Upton and PMD: Dr. Mik Rosales. Patient was admitted for presyncopal spell and was asymptomatic after that. Carotid Doppler and echo were unremarkable. Cardiology was consulted and cleared for discharge with follow up as an O/P. patient was hemodynamically stable at the time of discharge. Patient has enough supply of his home meds. Disposition: DC-01 TO HOME OR SELFCARE Time spent for discharge: 31 minutes - Discharge Diagnoses (1) Cardiac pacemaker in situ Status: Acute (2) Near syncope Status: Acute (3) HTN (hypertension) Status: Chronic (4) Hyperlipidemia Status: Chronic Core Measure Documentation - Palliative Care Palliative Care/ Comfort Measures: Not Applicable - Core Measures Any of the following diagnoses?: none Exam - Physical Exam Narrative exam: Not in cardiopulmonary distress. The patient appeared well nourished and normally developed. Vital signs as documented. Head exam is unremarkable. No scleral icterus . Neck is without jugular venous distension, thyromegaly, or carotid bruits. Lungs are clear to auscultation. Cardiac exam reveals regular rate and Rhythm. First and second heart sounds normal. No murmurs, rubs or gallops. Abdominal exam reveals normal bowel sounds, no masses, no organomegaly and no aortic enlargement. Extremities are nonedematous and both femoral and pedal pulses are normal. 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 No focal weakness. - Constitutional Vitals: Temp Pulse Resp BP Pulse Ox 98 F 80 20 116/82 98 09/24/17 23:54 09/25/17 10:00 09/25/17 10:00 09/24/17 23:54 09/25/17 10:00 Plan Activity: no restrictions Weight Bearing Status: Full Weight Bearing Diet: low cholesterol, low salt Follow up with: PRIMARY CAREMD [Primary Care Provider] - 3-5 Days
--- NOTE | 2017-09-26 08:59 | Consultation ---
CARDIOLOGY CONSULTATION REFERRING PHYSICIAN: Hospitalist service. PRIMARY PUBLIC AFFAIRS DIRECTOR: Diego Upton MD HISTORY OF PRESENT ILLNESS: The patient is an exceedingly pleasant 72-year-old gentleman who lives here in [place] and has a history of hypertension, pacemaker placement, hypertriglyceridemia, right bundle branch block. He presented with a syncopal episode. He was working in the yard. He and his are both present during interview and they both state that he was wearing too many layers. It became hot. He became a little tired. He did not pass out, had a presyncopal spell. He feels much better. No chest pain or shortness of breath. No palpitations. At this point he is seen, denies any symptoms. States I feel back to normal " No headache, blurred vision, nausea, or vomiting. PAST MEDICAL HISTORY: Right bundle branch block, Mobitz second degree AV block, status post permanent pacemaker placement, hypertension, hypertriglyceridemia. MEDICATIONS: Reviewed. ALLERGIES: No known drug, food, or environmental allergies. SOCIAL HISTORY: Nonsmoker, nondrinker. His most recent echocardiogram was in 08/2016 which revealed normal LV function and no valvulopathy, recently had pacemaker interrogated, it is a Biotronik device. There were no issues. EKG shows right bundle branch block here. PHYSICAL EXAMINATION: VITAL SIGNS: Blood pressure is 110/80. He is afebrile. Tele reveals sinus rhythm, no dysrhythmias. O2 sats 100% on room air. GENERAL: This is a middle-aged gentleman, in no apparent distress, alert and oriented x 3. HEENT: Sclerae anicteric. PERRL. NECK: Supple. No mass or JVD. CHEST: Clear to auscultation bilaterally. Good air movement. CARDIOVASCULAR: Regular rhythm, S1, S2. ABDOMEN: Soft, nontender, nondistended. Normoactive bowel sounds in all 4 quadrants. No mass or bruits. EXTREMITIES: No cyanosis, clubbing, edema. Good peripheral pulses. SKIN: Warm, dry, and intact. No rashes. DATA: EKG is aforementioned. Cardiac enzymes are negative x 3. Creatinine is 1.1. CBC is unremarkable. Urinalysis is unremarkable. Chest x-ray reveals no acute pulmonary process, no bony process. ASSESSMENT AND PLAN: In summary, the patient is a pleasant 72-year-old gentleman with the aforementioned medical history, who presents here with a presyncopal spell. He is doing well, clinically stable. Blood work is unremarkable including cardiac enzymes. He is entirely asymptomatic. Telemetry is unremarkable. He has a carotid and echo pending. I believe he may have been mildly dehydrated. If these are unremarkable, I believe he is okay to be discharged. We will get his Biotronik pacemaker interrogated early next week. My findings and plan of care discussed at length with the patient and his . All questions and concerns were addressed. JOB# [id number] DAVID/RAMÍREZ
== END 2017-09-25 15:06 | disposition home or self-care (01) | DRG 312 ==
LOC: ED 19:31 → 4A 22:25
PROVIDERS: ADMIT Internal Medicine; ATTEND Internal Medicine
DX: R55 Syncope and collapse (principal); I10 Essential (primary) hypertension; E78.5 Hyperlipidemia, unspecified; Z95.0 Presence of cardiac pacemaker; Z87.442 Personal history of urinary calculi; Z87.891 Personal history of nicotine dependence
CPT/HCPCS: 36415; 71046; 80048; 81001; 82550; 82553; 84484; 85025; 93005; 93010; 93306; 93880; J1644; J2405